=== PATIENT | female | born 1930 | race Caucasian/White ===

== ENCOUNTER 2017-05-03 12:24 | Emergency (ER) | payer MEDICARE, OTHER ==
[~2017-05-03] VITALS: Ht 152.4 cm; Wt 56.4 kg
[~2017-05-03 12:24] MED LIST: ATEN-169 PO; BENA20TA2 PO; FURO20TA4 PO; HYDR-4070 PO; MORP15TA60 PO; NIFE90TA2 PO; ONDA4TAB59 PO; OXYB5TAB PO; PANT40TA4 PO; ROSU40TA PO; SENN-129 PO; SYN0.075T PO; TRAM50TA2 PO
[2017-05-03 13:04] LABS: BASOPHILS % (AUTO) 0.4 % (0-1); EOSINOPHILS # (AUTO) 0.3 X10'3 (0-0.9); EOSINOPHILS % (AUTO) 3.1 % (0-6); HEMATOCRIT 44.4 % (35.0-45.0); HEMOGLOBIN 14.9 g/dl (12.0-16.0); LYMPHOCYTES # (AUTO) 2.9 X10'3 (1.1-4.8); LYMPHOCYTES % (AUTO) 30.8 % (21-51); MEAN CORPUSCULAR HGB CONC 33.6 % (33.0-36.5); MEAN CORPUSCULAR VOLUME 92.4 FL (78-98); MEAN PLATELET VOLUME 9.7 FL (7.4-10.4); MONOCYTES # (AUTO) 0.5 X10'3 (0-0.9); MONOCYTES % (AUTO) 5.2 % (2-12); NEUTROPHILS # (AUTO) 5.7 X10'3 (1.8-7.7); NEUTROPHILS % (AUTO) 60.5 % (42-75); PLATELET COUNT 249 X10'3 (140-440); RED BLOOD COUNT 4.81 X10'6 (4.20-5.60); RED CELL DISTRIBUTION WIDTH 13.8 % (11.5-14.5); WHITE BLOOD COUNT 9.5 X10'3 (4.5-11.0)
[2017-05-03 13:35] LABS: PARTIAL THROMBOPLASTIN TIME 24 SECONDS (22-32)
[2017-05-03] MEDS ORDERED: morphine ER 15mg tablet PO ONE (13:40)
[2017-05-03 13:52] LABS: ALANINE AMINOTRANSFERASE 23 U/L (12-78); ALBUMIN 3.7 G/DL (3.4-5.0); ALKALINE PHOSPHATASE 57 IU/L (46-116); ANION GAP 14 (8-16); ASPARTATE AMINO TRANSFERASE 19 U/L (10-37); BILIRUBIN,TOTAL 0.9 MG/DL (0.1-1.0); BLOOD UREA NITROGEN 26 MG/DL (7-18); BUN/CREATININE RATIO 19.5 (6.6-38.0); CALCIUM 8.9 MG/DL (8.5-10.1); CHLORIDE 108 MMOL/L (99-107); CREATININE 1.33 MG/DL (0.40-0.90); GLUCOSE 113 MG/DL (70-104); POTASSIUM 3.7 MMOL/L (3.5-5.1); SODIUM 143 MMOL/L (135-145); TOTAL CARBON DIOXIDE 21.2 MMOL/L (24-32); TOTAL PROTEIN 7.3 G/DL (6.4-8.2); eGFR 38 ML/MIN
[2017-05-03] MEDS ORDERED: BENA20TA2 PO (13:55)
[2017-05-03] MEDS ORDERED: BENA40TA2 PO (13:55)
[2017-05-03] MEDS ORDERED: MORP30TA60 PO (14:03)
[2017-05-03] MEDS ORDERED: hyDRALAzine 10mg tablet PO ONE (14:40)
[2017-05-03] MEDS ORDERED: lisinopril 10 MG tablet PO ONE (15:15)
[2017-05-03] MEDS ORDERED: carVEDilol 3.125mg tablet PO ONE (15:15)
[2017-05-03 16:50] VITALS: BP 190/89
== END 2017-05-03 17:17 | disposition home or self-care (01) ==
LOC: ER 12:26
DX: I10 Essential (primary) hypertension (principal); G89.29 Other chronic pain; M54.9 Dorsalgia, unspecified; I25.10 Atherosclerotic heart disease of native coronary artery without angina pectoris; K21.9 Gastro-esophageal reflux disease without esophagitis; E78.00 Pure hypercholesterolemia, unspecified; I25.2 Old myocardial infarction; Z95.1 Presence of aortocoronary bypass graft; Z79.899 Other long term (current) drug therapy; Z88.1 Allergy status to other antibiotic agents; Z88.8 Allergy status to other drugs, medicaments and biological substances
CPT/HCPCS: 36415; 80053; 84484; 85025; 85610; 85730; 93005; 99285

== ENCOUNTER 2017-05-12 11:11 | Inpatient (IN) | payer MEDICARE, OTHER ==
[2017-05-12] VITALS (10 sets, daily range): BP systolic 130–167; BP diastolic 50–85
[~2017-05-12] VITALS: Ht 152.4 cm; Wt 54.5 kg
[~2017-05-12 11:11] MED LIST changes: +BENA40TA2 PO; -MORP15TA60 PO; +MORP30TA60 PO; -NIFE90TA2 PO; -ONDA4TAB59 PO; -PANT40TA4 PO; -SENN-129 PO; -TRAM50TA2 PO
[2017-05-12] MEDS: nitroGLYCERIN 0.4mg SUBLingual tab SL PRN ×2 (11:41→12:54)
[2017-05-12 11:46] LABS: BASOPHILS # (AUTO) 0.1 X10'3 (0-0.2); EOSINOPHILS # (AUTO) 0.4 X10'3 (0-0.9); EOSINOPHILS % (AUTO) 2.9 % (0-6); HEMATOCRIT 38.6 % (35.0-45.0); HEMOGLOBIN 13.4 g/dl (12.0-16.0); LYMPHOCYTES # (AUTO) 1.7 X10'3 (1.1-4.8); LYMPHOCYTES % (AUTO) 12.8 % (21-51); MEAN CORPUSCULAR HEMOGLOBIN 31.7 PG (27.0-31.0); MEAN CORPUSCULAR HGB CONC 34.6 % (33.0-36.5); MEAN CORPUSCULAR VOLUME 91.6 FL (78-98); MEAN PLATELET VOLUME 9.5 FL (7.4-10.4); MONOCYTES # (AUTO) 0.6 X10'3 (0-0.9); MONOCYTES % (AUTO) 4.6 % (2-12); NEUTROPHILS # (AUTO) 10.1 X10'3 (1.8-7.7); NEUTROPHILS % (AUTO) 78.7 % (42-75); PLATELET COUNT 197 X10'3 (140-440); RED BLOOD COUNT 4.22 X10'6 (4.20-5.60); RED CELL DISTRIBUTION WIDTH 13.4 % (11.5-14.5); WHITE BLOOD COUNT 12.9 X10'3 (4.5-11.0)
[2017-05-12 11:59] LABS: ALANINE AMINOTRANSFERASE 15 U/L (12-78); ALBUMIN 3.4 G/DL (3.4-5.0); ALKALINE PHOSPHATASE 47 IU/L (46-116); ANION GAP 12 (8-16); ASPARTATE AMINO TRANSFERASE 11 U/L (10-37); BILIRUBIN,TOTAL 0.7 MG/DL (0.1-1.0); BLOOD UREA NITROGEN 28 MG/DL (7-18); BUN/CREATININE RATIO 18.5 (6.6-38.0); CALCIUM 9.1 MG/DL (8.5-10.1); CHLORIDE 108 MMOL/L (99-107); CREATININE 1.51 MG/DL (0.40-0.90); GLUCOSE 191 MG/DL (70-104); POTASSIUM 3.8 MMOL/L (3.5-5.1); SODIUM 141 MMOL/L (135-145); TOTAL CARBON DIOXIDE 21.4 MMOL/L (24-32); TOTAL PROTEIN 6.9 G/DL (6.4-8.2); eGFR 33 ML/MIN
[2017-05-12 12:07] LABS: MAGNESIUM 2.1 MG/DL (1.5-2.4)
[2017-05-12] MEDS ORDERED: enoxaparin 100mg/ml syringe SUBCUT ONE (12:50)
[2017-05-12] MEDS ORDERED: mag hydrox/Alum hydrox/simeth 30ml oral suspension PO PRN (12:55)
[2017-05-12] MEDS ORDERED: magnesium 2GM in 50ml NS 50 ML IV PRN (12:55)
[2017-05-12] MEDS ORDERED: magnesium hydroxide 30ml (MOM) UD suspension PO PRN (12:55)
[2017-05-12] MEDS ORDERED: potassium Cl 40MEQ/NS 500ml 500 ML IV PRN ×2 (12:55)
[2017-05-12] MEDS ORDERED: ondansetron/PF 4mg/2ml inj IV PRN ×2 (12:55→22:15)
[2017-05-12] MEDS ORDERED: acetaminophen 325mg tablet PO PRN (12:55)
[2017-05-12] MEDS ORDERED: magnesium 4gm in 100ml NS 100 ML IV PRN (12:55)
[2017-05-12] MEDS: atorvastatin 20mg tablet PO SCH ×2 (13:03→21:00)
[2017-05-12] MEDS ORDERED: furosemide 20MG tablet PO PRN (13:03)
[2017-05-12] MEDS: levoTHYROXINE 75mcg tablet PO SCH (13:03)
[2017-05-12] MEDS ORDERED: hydrALAZINE 25 MG tablet PO PRN (13:03)
[2017-05-12] MEDS: morphine ER 15mg tablet PO SCH (13:03)
[2017-05-12] MEDS: lisinopril 20mg tablet PO SCH ×2 (13:18→21:00)
[2017-05-12] MEDS: oxybutynin 5mg tablet PO SCH ×2 (13:20→20:00)
[2017-05-12] MEDS ORDERED: nitroGLYCERIN-Tridil 50MG/D5W 250 ML IV SCH (17:20)
[2017-05-12] MEDS ORDERED: heparin 10,000 units/1 ML INJ IV ONE (19:45)
[2017-05-12] MEDS ORDERED: heparin 10,000 units/1 ML INJ IV PRN (19:45)
[2017-05-12 20:13] LABS: BASOPHILS # (AUTO) 0.1 X10'3 (0-0.2); BASOPHILS % (AUTO) 0.5 % (0-1); EOSINOPHILS # (AUTO) 0.2 X10'3 (0-0.9); EOSINOPHILS % (AUTO) 1.7 % (0-6); HEMOGLOBIN 13.2 g/dl (12.0-16.0); LYMPHOCYTES # (AUTO) 3.4 X10'3 (1.1-4.8); LYMPHOCYTES % (AUTO) 25.1 % (21-51); MEAN CORPUSCULAR HEMOGLOBIN 31.3 PG (27.0-31.0); MEAN PLATELET VOLUME 9.6 FL (7.4-10.4); MONOCYTES % (AUTO) 7.3 % (2-12); NEUTROPHILS # (AUTO) 8.8 X10'3 (1.8-7.7); NEUTROPHILS % (AUTO) 65.4 % (42-75); PLATELET COUNT 206 X10'3 (140-440); RED BLOOD COUNT 4.24 X10'6 (4.20-5.60); RED CELL DISTRIBUTION WIDTH 13.5 % (11.5-14.5); WHITE BLOOD COUNT 13.4 X10'3 (4.5-11.0)
[2017-05-12 20:19] LABS: PARTIAL THROMBOPLASTIN TIME 32 SECONDS (22-32); PROTHROMBIN TIME 10.4 SECONDS (9.0-12.0)
[2017-05-12] MEDS: tirofiban 5mg in NS 100mL 100 ML IV SCH (20:28)
[2017-05-12] MEDS ORDERED: LIDOcaine 1%/PF (10mg/ml) 5ml vial ONE (20:35)
[2017-05-12] MEDS ORDERED: iohexol 350MG/ML 100ml bottle IV ONE (20:35)
[2017-05-12] MEDS ORDERED: fentaNYL/PF 50MCG/1 ML 2ML syringe ONE (21:05)
[2017-05-12] MEDS ORDERED: midazolam 2 mg/2 ml injection ONE (21:05)
[2017-05-12] MEDS ORDERED: heparin 1,000unit/ml 10ml vial 10 ML ONE (21:20)
[2017-05-12] MEDS ORDERED: ticagrelor 90mg tablet ONE (21:33)
[2017-05-12] MEDS ORDERED: normal saline 1000ml 1,000 ML IV SCH (22:00)
[2017-05-12] MEDS ORDERED: HYDROcodone/acetaminophen 10/325mg tab PO PRN (22:15)
[2017-05-12] MEDS ORDERED: OXAZEpam 15mg capsule PO PRN (22:15)
[2017-05-12] MEDS ORDERED: HYDROcodone/acetaminophen 5mg/325mg tablet PO PRN (22:15)
[2017-05-12] MEDS ORDERED: nitroGLYCERIN 0.4mg SUBLingual tab SL PRN (22:15)
[2017-05-13] VITALS (11 sets, daily range): BP systolic 125–165; BP diastolic 45–84
[2017-05-13] MEDS: tirofiban 5mg in NS 100mL 100 ML IV SCH (03:33)
[2017-05-13 05:46] LABS: BASOPHILS % (AUTO) 0.3 % (0-1); EOSINOPHILS # (AUTO) 0.3 X10'3 (0-0.9); EOSINOPHILS % (AUTO) 3.4 % (0-6); HEMATOCRIT 35.4 % (35.0-45.0); LYMPHOCYTES # (AUTO) 1.6 X10'3 (1.1-4.8); LYMPHOCYTES % (AUTO) 16.1 % (21-51); MEAN CORPUSCULAR HEMOGLOBIN 31.4 PG (27.0-31.0); MEAN CORPUSCULAR HGB CONC 33.9 % (33.0-36.5); MEAN CORPUSCULAR VOLUME 92.6 FL (78-98); MEAN PLATELET VOLUME 10.1 FL (7.4-10.4); MONOCYTES # (AUTO) 0.7 X10'3 (0-0.9); MONOCYTES % (AUTO) 6.9 % (2-12); NEUTROPHILS # (AUTO) 7.3 X10'3 (1.8-7.7); NEUTROPHILS % (AUTO) 73.3 % (42-75); PLATELET COUNT 185 X10'3 (140-440); RED BLOOD COUNT 3.83 X10'6 (4.20-5.60); RED CELL DISTRIBUTION WIDTH 13.3 % (11.5-14.5)
[2017-05-13 06:08] LABS: ALANINE AMINOTRANSFERASE 27 U/L (12-78); ALBUMIN/GLOBULIN RATIO 0.9 (1.1-1.5); ALKALINE PHOSPHATASE 43 IU/L (46-116); ANION GAP 10 (8-16); ASPARTATE AMINO TRANSFERASE 126 U/L (10-37); BILIRUBIN,TOTAL 0.7 MG/DL (0.1-1.0); BLOOD UREA NITROGEN 25 MG/DL (7-18); BUN/CREATININE RATIO 19.2 (6.6-38.0); CALCIUM 8.5 MG/DL (8.5-10.1); CHLORIDE 108 MMOL/L (99-107); CHOL/HDL RATIO 2.7 (0.00-4.99); CHOLESTEROL 108 MG/DL (0-200); GLUCOSE 103 MG/DL (70-104); HDL CHOLESTEROL 40 MG/DL (35-60); LDL CHOLESTEROL 52 MG/DL (50-100); POTASSIUM 3.5 MMOL/L (3.5-5.1); SODIUM 140 MMOL/L (135-145); TOTAL CARBON DIOXIDE 21.7 MMOL/L (24-32); TOTAL PROTEIN 6.4 G/DL (6.4-8.2); TRIGLYCERIDES 85 MG/DL (20-135); eGFR 39 ML/MIN
[2017-05-13] MEDS ORDERED: proCHLORperazine 10 MG/2 ml inj IV PRN (06:15)
[2017-05-13] MEDS ORDERED: normal saline 1000ml 1,000 ML IV SCH (06:15)
[2017-05-13] MEDS: levoTHYROXINE 75mcg tablet PO SCH (07:20)
[2017-05-13] MEDS: ticagrelor 90mg tablet PO SCH ×2 (07:20→20:21)
[2017-05-13] MEDS: oxybutynin 5mg tablet PO SCH ×2 (07:20→20:21)
[2017-05-13] MEDS: morphine ER 15mg tablet PO SCH (07:20)
[2017-05-13] MEDS: lisinopril 20mg tablet PO SCH ×2 (07:20→20:22)
[2017-05-13] MEDS: K and/or MAG REPLACEMENT MC SCH (07:31)
[2017-05-13] MEDS ORDERED: enoxaparin 60mg/0.6ml syringe SUBCUT SCH (08:00)
[2017-05-13] MEDS ORDERED: nitroGLYCERIN 0.2mg/hour patch TD SCH (08:00)
[2017-05-13] MEDS: aspirin 81mg tablet.DR PO SCH (08:34)
[2017-05-13] MEDS: metoprolol succinate 25mg (24-HOUR) SR. Tablet PO SCH (08:35)
[2017-05-13] MEDS: atorvastatin 20mg tablet PO SCH (20:22)
[2017-05-14 03:00] VITALS: BP 128/93
[2017-05-14 05:09] LABS: BASOPHILS % (AUTO) 0.5 % (0-1); EOSINOPHILS # (AUTO) 0.5 X10'3 (0-0.9); EOSINOPHILS % (AUTO) 6.1 % (0-6); HEMATOCRIT 33.4 % (35.0-45.0); HEMOGLOBIN 11.2 g/dl (12.0-16.0); LYMPHOCYTES # (AUTO) 1.9 X10'3 (1.1-4.8); LYMPHOCYTES % (AUTO) 24.5 % (21-51); MEAN CORPUSCULAR HGB CONC 33.6 % (33.0-36.5); MEAN CORPUSCULAR VOLUME 92.1 FL (78-98); MEAN PLATELET VOLUME 10.2 FL (7.4-10.4); MONOCYTES # (AUTO) 0.6 X10'3 (0-0.9); MONOCYTES % (AUTO) 7.6 % (2-12); NEUTROPHILS # (AUTO) 4.7 X10'3 (1.8-7.7); NEUTROPHILS % (AUTO) 61.3 % (42-75); PLATELET COUNT 161 X10'3 (140-440); RED BLOOD COUNT 3.63 X10'6 (4.20-5.60); RED CELL DISTRIBUTION WIDTH 13.5 % (11.5-14.5); WHITE BLOOD COUNT 7.7 X10'3 (4.5-11.0)
[2017-05-14 05:24] LABS: ALANINE AMINOTRANSFERASE 29 U/L (12-78); ALBUMIN 2.6 G/DL (3.4-5.0); ALBUMIN/GLOBULIN RATIO 0.8 (1.1-1.5); ALKALINE PHOSPHATASE 38 IU/L (46-116); ANION GAP 8 (8-16); ASPARTATE AMINO TRANSFERASE 79 U/L (10-37); BILIRUBIN,TOTAL 0.7 MG/DL (0.1-1.0); BLOOD UREA NITROGEN 22 MG/DL (7-18); BUN/CREATININE RATIO 16.2 (6.6-38.0); CALCIUM 8.4 MG/DL (8.5-10.1); CHLORIDE 110 MMOL/L (99-107); CREATININE 1.36 MG/DL (0.40-0.90); GLUCOSE 91 MG/DL (70-104); MAGNESIUM 1.9 MG/DL (1.5-2.4); POTASSIUM 3.4 MMOL/L (3.5-5.1); SODIUM 141 MMOL/L (135-145); TOTAL CARBON DIOXIDE 23.5 MMOL/L (24-32); TOTAL PROTEIN 5.9 G/DL (6.4-8.2); eGFR 37 ML/MIN
[2017-05-14 06:00] VITALS: BP 157/71
[2017-05-14 07:22] VITALS: BP 136/66
[2017-05-14] MEDS: aspirin 81mg tablet.DR PO SCH (07:24)
[2017-05-14] MEDS: morphine ER 15mg tablet PO SCH (07:25)
[2017-05-14] MEDS: ticagrelor 90mg tablet PO SCH (07:25)
[2017-05-14] MEDS: oxybutynin 5mg tablet PO SCH (07:25)
[2017-05-14] MEDS: lisinopril 20mg tablet PO SCH (07:26)
[2017-05-14] MEDS: levoTHYROXINE 75mcg tablet PO SCH (07:27)
[2017-05-14] MEDS: K and/or MAG REPLACEMENT MC SCH (07:30)
[2017-05-14] MEDS: metoprolol succinate 25mg (24-HOUR) SR. Tablet PO SCH (07:35)
[2017-05-14] MEDS ORDERED: potassium Cl 20 mEq SR tablet PO PRN ×2 (08:45)
[2017-05-14] MEDS ORDERED: potassium Cl 40MEQ/NS 500ml 500 ML IV PRN ×2 (08:45)
[2017-05-14] MEDS ORDERED: ASPI-1071 PO (11:35)
[2017-05-14] MEDS ORDERED: TICA90TA PO (11:35)
[2017-05-14 11:45] VITALS: BP 163/63
[2017-05-14 11:46] VITALS: BP 183/63
== END 2017-05-14 14:50 | disposition home or self-care (01) | DRG 246 ==
LOC: ER 11:11 → ED HOLD 12:51 → PCU 3S 16:00
PROVIDERS: ADMIT Family Medicine; ATTEND Internal Medicine
PROC: 4A023N7 Measurement of Cardiac Sampling and Pressure, Left Heart, Percutaneous Approach (ICD-10-PCS; principal; 2017-05-12)
PROC: 02C03ZZ Extirpation of Matter from Coronary Artery, One Artery, Percutaneous Approach (ICD-10-PCS; 2017-05-12)
PROC: 027035Z Dilation of Coronary Artery, One Artery with Two Drug-eluting Intraluminal Devices, Percutaneous Approach (ICD-10-PCS; 2017-05-12)
PROC: B2111ZZ Fluoroscopy of Multiple Coronary Arteries using Low Osmolar Contrast (ICD-10-PCS; 2017-05-12)
PROC: B2131ZZ Fluoroscopy of Multiple Coronary Artery Bypass Grafts using Low Osmolar Contrast (ICD-10-PCS; 2017-05-12)
PROC: B41F1ZZ Fluoroscopy of Right Lower Extremity Arteries using Low Osmolar Contrast (ICD-10-PCS; 2017-05-12)
DX: T82.868A Thrombosis due to vascular prosthetic devices, implants and grafts, initial encounter (principal); I21.4 Non-ST elevation (NSTEMI) myocardial infarction; I50.31 Acute diastolic (congestive) heart failure; N17.9 Acute kidney failure, unspecified; I25.710 Atherosclerosis of autologous vein coronary artery bypass graft(s) with unstable angina pectoris; I13.0 Hypertensive heart and chronic kidney disease with heart failure and stage 1 through stage 4 chronic kidney disease, or unspecified chronic kidney disease; I44.7 Left bundle-branch block, unspecified; Z95.1 Presence of aortocoronary bypass graft; E03.9 Hypothyroidism, unspecified; N18.9 Chronic kidney disease, unspecified; E78.00 Pure hypercholesterolemia, unspecified; E78.5 Hyperlipidemia, unspecified; G89.4 Chronic pain syndrome; M54.9 Dorsalgia, unspecified; K21.9 Gastro-esophageal reflux disease without esophagitis; Y83.2 Surgical operation with anastomosis, bypass or graft as the cause of abnormal reaction of the patient, or of later complication, without mention of misadventure at the time of the procedure; I25.2 Old myocardial infarction; Z98.82 Breast implant status; Z90.13 Acquired absence of bilateral breasts and nipples; Z90.710 Acquired absence of both cervix and uterus; Z90.49 Acquired absence of other specified parts of digestive tract; Z88.1 Allergy status to other antibiotic agents; Z88.8 Allergy status to other drugs, medicaments and biological substances; Z79.899 Other long term (current) drug therapy; Z85.3 Personal history of malignant neoplasm of breast; Z82.49 Family history of ischemic heart disease and other diseases of the circulatory system; Z82.5 Family history of asthma and other chronic lower respiratory diseases; Y92.89 Other specified places as the place of occurrence of the external cause
CPT/HCPCS: 93306; 93459; 96372; 99285; C9604; 36415; 71045; 80053; 80061; 83735; 83880; 84484; 85025; 85347; 85610; 85730; 87070; 93005; 99152; 99153; A4315; A4620; A6257; C1725; C1757; C1760; C1769; C1874; J1644; J1650; J2001; J2250; J2270; J3010; J3246; J3490; J7030; Q9967

== ENCOUNTER 2017-05-17 02:48 | Inpatient (IN) | payer MEDICARE, OTHER ==
[~2017-05-17] VITALS: Ht 157.5 cm; Wt 55.7 kg
[~2017-05-17 02:48] MED LIST changes: +ASPI-1071 PO; -BENA40TA2 PO; -ROSU40TA PO; +TICA90TA PO
[2017-05-17] MEDS ORDERED: aspirin 81mg tab.chew PO ONE (02:55)
[2017-05-17] MEDS ORDERED: nitroGLYCERIN 0.4mg SUBLingual tab SL PRN (02:55)
[2017-05-17 03:28] LABS: BASOPHILS # (AUTO) 0.1 X10'3 (0-0.2); BASOPHILS % (AUTO) 0.5 % (0-1); EOSINOPHILS # (AUTO) 0.5 X10'3 (0-0.9); EOSINOPHILS % (AUTO) 5.5 % (0-6); HEMATOCRIT 35.3 % (35.0-45.0); LYMPHOCYTES # (AUTO) 2.2 X10'3 (1.1-4.8); LYMPHOCYTES % (AUTO) 22.1 % (21-51); MEAN CORPUSCULAR HEMOGLOBIN 31.6 PG (27.0-31.0); MEAN CORPUSCULAR VOLUME 92.9 FL (78-98); MEAN PLATELET VOLUME 9.5 FL (7.4-10.4); MONOCYTES # (AUTO) 0.9 X10'3 (0-0.9); MONOCYTES % (AUTO) 9.3 % (2-12); NEUTROPHILS # (AUTO) 6.2 X10'3 (1.8-7.7); NEUTROPHILS % (AUTO) 62.6 % (42-75); PLATELET COUNT 210 X10'3 (140-440); RED BLOOD COUNT 3.79 X10'6 (4.20-5.60); RED CELL DISTRIBUTION WIDTH 13.1 % (11.5-14.5); WHITE BLOOD COUNT 9.9 X10'3 (4.5-11.0)
[2017-05-17 03:43] LABS: ALANINE AMINOTRANSFERASE 51 U/L (12-78); ALBUMIN 3.1 G/DL (3.4-5.0); ALBUMIN/GLOBULIN RATIO 0.8 (1.1-1.5); ALKALINE PHOSPHATASE 77 IU/L (46-116); ANION GAP 10 (8-16); ASPARTATE AMINO TRANSFERASE 123 U/L (10-37); BILIRUBIN,TOTAL 0.6 MG/DL (0.1-1.0); BLOOD UREA NITROGEN 31 MG/DL (7-18); BUN/CREATININE RATIO 16.8 (6.6-38.0); CALCIUM 8.3 MG/DL (8.5-10.1); CHLORIDE 107 MMOL/L (99-107); CREATININE 1.84 MG/DL (0.40-0.90); GLUCOSE 163 MG/DL (70-104); SODIUM 141 MMOL/L (135-145); TOTAL CARBON DIOXIDE 24.2 MMOL/L (24-32); TOTAL PROTEIN 6.9 G/DL (6.4-8.2); eGFR 26 ML/MIN
[2017-05-17 03:50] LABS: MAGNESIUM 2.3 MG/DL (1.5-2.4)
[2017-05-17] MEDS ORDERED: enoxaparin 100mg/ml syringe SUBCUT ONE (03:50)
[2017-05-17] MEDS ORDERED: ondansetron/PF 4mg/2ml inj IV PRN (04:15)
[2017-05-17] MEDS ORDERED: acetaminophen 325mg tablet PO PRN (04:15)
[2017-05-17] MEDS ORDERED: mag hydrox/Alum hydrox/simeth 30ml oral suspension PO PRN (04:15)
[2017-05-17] MEDS ORDERED: nitroGLYCERIN 0.4mg/hour patch TD ONE (04:30)
[2017-05-17] MEDS ORDERED: furosemide 20MG tablet PO PRN (04:35)
[2017-05-17] MEDS: metoprolol tartrate 25mg tablet PO SCH ×2 (07:35→20:08)
[2017-05-17] MEDS: levoTHYROXINE 75mcg tablet PO SCH (07:35)
[2017-05-17] MEDS: ticagrelor 90mg tablet PO SCH ×2 (07:35→20:08)
[2017-05-17] MEDS: aspirin 81mg tablet.DR PO SCH (07:35)
[2017-05-17] MEDS: oxybutynin 5mg tablet PO SCH ×2 (07:36→20:08)
[2017-05-17] MEDS: morphine ER 15mg tablet PO SCH (07:36)
[2017-05-17 15:25] VITALS: BP 158/80
[2017-05-17 19:00] VITALS: BP 177/86
[2017-05-17] MEDS ORDERED: lisinopril 20mg tablet PO SCH (21:00)
[2017-05-17] MEDS: acetaminophen 325mg tablet PO PRN (21:29)
[2017-05-17 23:00] VITALS: BP 165/72
[2017-05-18] VITALS (9 sets, daily range): BP systolic 127–194; BP diastolic 58–83
[2017-05-18] MEDS ORDERED: morphine 5 MG/ML injection IV ONE (00:50)
[2017-05-18] MEDS: magnesium hydroxide 30ml (MOM) UD suspension PO PRN (04:21)
[2017-05-18] MEDS: hydrALAZINE 20mg/ml inj. IV PRN ×2 (05:12→22:15)
[2017-05-18 05:22] LABS: BASOPHILS # (AUTO) 0.1 X10'3 (0-0.2); BASOPHILS % (AUTO) 0.8 % (0-1); EOSINOPHILS # (AUTO) 0.7 X10'3 (0-0.9); EOSINOPHILS % (AUTO) 7.3 % (0-6); HEMATOCRIT 35.8 % (35.0-45.0); HEMOGLOBIN 12.1 g/dl (12.0-16.0); LYMPHOCYTES # (AUTO) 1.8 X10'3 (1.1-4.8); LYMPHOCYTES % (AUTO) 18.7 % (21-51); MEAN CORPUSCULAR HEMOGLOBIN 31.3 PG (27.0-31.0); MEAN CORPUSCULAR HGB CONC 33.8 % (33.0-36.5); MEAN CORPUSCULAR VOLUME 92.6 FL (78-98); MEAN PLATELET VOLUME 9.9 FL (7.4-10.4); MONOCYTES # (AUTO) 0.8 X10'3 (0-0.9); MONOCYTES % (AUTO) 8.2 % (2-12); NEUTROPHILS # (AUTO) 6.2 X10'3 (1.8-7.7); PLATELET COUNT 216 X10'3 (140-440); RED BLOOD COUNT 3.87 X10'6 (4.20-5.60); RED CELL DISTRIBUTION WIDTH 13.2 % (11.5-14.5); WHITE BLOOD COUNT 9.5 X10'3 (4.5-11.0)
[2017-05-18 05:37] LABS: ALBUMIN 3.2 G/DL (3.4-5.0); ANION GAP 7 (8-16); BLOOD UREA NITROGEN 22 MG/DL (7-18); BUN/CREATININE RATIO 15.2 (6.6-38.0); CALCIUM 8.7 MG/DL (8.5-10.1); CHLORIDE 106 MMOL/L (99-107); CREATININE 1.45 MG/DL (0.40-0.90); GLUCOSE 91 MG/DL (70-104); POTASSIUM 3.9 MMOL/L (3.5-5.1); SODIUM 140 MMOL/L (135-145); TOTAL CARBON DIOXIDE 27.1 MMOL/L (24-32); eGFR 34 ML/MIN
[2017-05-18] MEDS: oxybutynin 5mg tablet PO SCH ×2 (07:16→19:49)
[2017-05-18] MEDS: aspirin 81mg tablet.DR PO SCH (07:16)
[2017-05-18] MEDS: metoprolol tartrate 25mg tablet PO SCH ×2 (07:17→19:49)
[2017-05-18] MEDS: pantoprazole 40mg Tablet.DR PO SCH (07:17)
[2017-05-18] MEDS: ticagrelor 90mg tablet PO SCH ×2 (07:17→19:49)
[2017-05-18] MEDS: morphine ER 15mg tablet PO SCH (07:17)
[2017-05-18] MEDS: levoTHYROXINE 75mcg tablet PO SCH (07:17)
[2017-05-18] MEDS: lisinopril 20mg tablet PO SCH (08:29)
[2017-05-18] MEDS: isosorbide mononitrate 30mg tab.SR.24H PO SCH (12:10)
[2017-05-18] MEDS: acetaminophen 325mg tablet PO PRN ×2 (14:26→23:19)
[2017-05-18] MEDS ORDERED: metoprolol tartrate 50mg tablet PO ONE (22:50)
[2017-05-19] VITALS (7 sets, daily range): BP systolic 128–188; BP diastolic 58–73
[2017-05-19 05:06] LABS: BASOPHILS # (AUTO) 0.1 X10'3 (0-0.2); BASOPHILS % (AUTO) 0.8 % (0-1); EOSINOPHILS # (AUTO) 0.7 X10'3 (0-0.9); EOSINOPHILS % (AUTO) 7.6 % (0-6); HEMATOCRIT 32.5 % (35.0-45.0); HEMOGLOBIN 11.2 g/dl (12.0-16.0); LYMPHOCYTES # (AUTO) 1.7 X10'3 (1.1-4.8); LYMPHOCYTES % (AUTO) 18.7 % (21-51); MEAN CORPUSCULAR HEMOGLOBIN 31.6 PG (27.0-31.0); MEAN CORPUSCULAR HGB CONC 34.4 % (33.0-36.5); MEAN CORPUSCULAR VOLUME 91.7 FL (78-98); MEAN PLATELET VOLUME 9.5 FL (7.4-10.4); MONOCYTES # (AUTO) 0.9 X10'3 (0-0.9); NEUTROPHILS # (AUTO) 5.6 X10'3 (1.8-7.7); NEUTROPHILS % (AUTO) 62.9 % (42-75); PLATELET COUNT 199 X10'3 (140-440); RED BLOOD COUNT 3.55 X10'6 (4.20-5.60)
[2017-05-19 05:21] LABS: ALBUMIN 2.9 G/DL (3.4-5.0); ANION GAP 7 (8-16); BLOOD UREA NITROGEN 22 MG/DL (7-18); BUN/CREATININE RATIO 14.7 (6.6-38.0); CALCIUM 8.8 MG/DL (8.5-10.1); CHLORIDE 107 MMOL/L (99-107); GLUCOSE 93 MG/DL (70-104); SODIUM 138 MMOL/L (135-145); eGFR 33 ML/MIN
[2017-05-19] MEDS: isosorbide mononitrate 30mg tab.SR.24H PO SCH (07:34)
[2017-05-19] MEDS: oxybutynin 5mg tablet PO SCH ×2 (07:34→19:21)
[2017-05-19] MEDS: pantoprazole 40mg Tablet.DR PO SCH (07:35)
[2017-05-19] MEDS: ticagrelor 90mg tablet PO SCH ×2 (07:35→19:22)
[2017-05-19] MEDS: metoprolol tartrate 25mg tablet PO SCH ×2 (07:35→19:21)
[2017-05-19] MEDS: morphine ER 15mg tablet PO SCH (07:35)
[2017-05-19] MEDS: lisinopril 20mg tablet PO SCH ×2 (07:35→19:21)
[2017-05-19] MEDS: aspirin 81mg tablet.DR PO SCH (07:35)
[2017-05-19] MEDS: levoTHYROXINE 75mcg tablet PO SCH (07:35)
[2017-05-19] MEDS: acetaminophen 325mg tablet PO PRN ×2 (09:10→22:18)
[2017-05-19] MEDS ORDERED: ROSU40TA29 (11:39)
[2017-05-19] MEDS ORDERED: NIFE90TA44 (11:39)
[2017-05-19] MEDS ORDERED: BENA20TA10 (11:39)
[2017-05-19] MEDS ORDERED: TICA90TA2 (11:42)
[2017-05-19] MEDS: hydrALAZINE 20mg/ml inj. IV PRN (22:18)
[2017-05-19] MEDS ORDERED: metoprolol tartrate 25mg tablet PO ONE (23:05)
[2017-05-20] VITALS (17 sets, daily range): BP systolic 121–197; BP diastolic 55–96
[2017-05-20] MEDS ORDERED: pramipexole 0.25mg tablet PO ONE (00:35)
[2017-05-20] MEDS: HYDROcodone/acetaminophen 5mg/325mg tablet PO PRN ×2 (01:01→22:43)
[2017-05-20 05:24] LABS: BASOPHILS # (AUTO) 0.1 X10'3 (0-0.2); BASOPHILS % (AUTO) 0.7 % (0-1); EOSINOPHILS # (AUTO) 0.6 X10'3 (0-0.9); EOSINOPHILS % (AUTO) 6.6 % (0-6); HEMATOCRIT 33.8 % (35.0-45.0); HEMOGLOBIN 11.6 g/dl (12.0-16.0); LYMPHOCYTES # (AUTO) 1.8 X10'3 (1.1-4.8); LYMPHOCYTES % (AUTO) 19.1 % (21-51); MEAN CORPUSCULAR HEMOGLOBIN 31.5 PG (27.0-31.0); MEAN CORPUSCULAR HGB CONC 34.2 % (33.0-36.5); MEAN CORPUSCULAR VOLUME 92.1 FL (78-98); MEAN PLATELET VOLUME 9.4 FL (7.4-10.4); MONOCYTES # (AUTO) 0.9 X10'3 (0-0.9); MONOCYTES % (AUTO) 9.4 % (2-12); NEUTROPHILS # (AUTO) 5.9 X10'3 (1.8-7.7); NEUTROPHILS % (AUTO) 64.2 % (42-75); PLATELET COUNT 228 X10'3 (140-440); RED BLOOD COUNT 3.67 X10'6 (4.20-5.60); RED CELL DISTRIBUTION WIDTH 13.1 % (11.5-14.5); WHITE BLOOD COUNT 9.3 X10'3 (4.5-11.0)
[2017-05-20 06:02] LABS: ALBUMIN 3.1 G/DL (3.4-5.0); ANION GAP 10 (8-16); BLOOD UREA NITROGEN 25 MG/DL (7-18); BUN/CREATININE RATIO 16.7 (6.6-38.0); CHLORIDE 105 MMOL/L (99-107); GLUCOSE 112 MG/DL (70-104); SODIUM 139 MMOL/L (135-145); TOTAL CARBON DIOXIDE 24.1 MMOL/L (24-32); eGFR 33 ML/MIN
[2017-05-20] MEDS: ticagrelor 90mg tablet PO SCH ×2 (08:09→19:24)
[2017-05-20] MEDS: aspirin 81mg tablet.DR PO SCH (08:09)
[2017-05-20] MEDS: levoTHYROXINE 75mcg tablet PO SCH (08:09)
[2017-05-20] MEDS: pantoprazole 40mg Tablet.DR PO SCH (08:09)
[2017-05-20] MEDS: lisinopril 20mg tablet PO SCH ×2 (08:09→19:24)
[2017-05-20] MEDS: oxybutynin 5mg tablet PO SCH ×2 (08:09→19:25)
[2017-05-20] MEDS: isosorbide mononitrate 30mg tab.SR.24H PO SCH (08:09)
[2017-05-20] MEDS: morphine ER 15mg tablet PO SCH (08:10)
[2017-05-20] MEDS: metoprolol tartrate 25mg tablet PO SCH ×2 (08:10→19:24)
[2017-05-20] MEDS: magnesium hydroxide 30ml (MOM) UD suspension PO PRN (13:11)
[2017-05-20] MEDS: acetaminophen 325mg tablet PO PRN ×2 (15:52→23:49)
[2017-05-20] MEDS: hydrALAZINE 20mg/ml inj. IV PRN (15:52)
[2017-05-20] MEDS ORDERED: ROPINIRole 0.25mg tablet PO SCH (21:00)
[2017-05-20] MEDS ORDERED: metoprolol tartrate 25mg tablet PO ONE (23:30)
[2017-05-21 03:00] VITALS: BP 151/57
[2017-05-21 06:00] VITALS: BP 167/70
[2017-05-21 06:10] LABS: BASOPHILS # (AUTO) 0.1 X10'3 (0-0.2); BASOPHILS % (AUTO) 0.7 % (0-1); EOSINOPHILS # (AUTO) 0.6 X10'3 (0-0.9); EOSINOPHILS % (AUTO) 5.5 % (0-6); HEMOGLOBIN 11.6 g/dl (12.0-16.0); LYMPHOCYTES # (AUTO) 1.6 X10'3 (1.1-4.8); LYMPHOCYTES % (AUTO) 15.8 % (21-51); MEAN CORPUSCULAR HEMOGLOBIN 31.7 PG (27.0-31.0); MEAN CORPUSCULAR HGB CONC 34.3 % (33.0-36.5); MEAN CORPUSCULAR VOLUME 92.5 FL (78-98); MEAN PLATELET VOLUME 9.5 FL (7.4-10.4); MONOCYTES # (AUTO) 0.7 X10'3 (0-0.9); MONOCYTES % (AUTO) 7.4 % (2-12); NEUTROPHILS # (AUTO) 7.1 X10'3 (1.8-7.7); NEUTROPHILS % (AUTO) 70.6 % (42-75); PLATELET COUNT 226 X10'3 (140-440); RED BLOOD COUNT 3.68 X10'6 (4.20-5.60); WHITE BLOOD COUNT 10.1 X10'3 (4.5-11.0)
[2017-05-21 06:51] LABS: ALBUMIN 3.1 G/DL (3.4-5.0); ANION GAP 9 (8-16); BLOOD UREA NITROGEN 27 MG/DL (7-18); BUN/CREATININE RATIO 16.9 (6.6-38.0); CALCIUM 8.7 MG/DL (8.5-10.1); CHLORIDE 105 MMOL/L (99-107); GLUCOSE 111 MG/DL (70-104); SODIUM 138 MMOL/L (135-145); eGFR 31 ML/MIN
[2017-05-21] MEDS: metoprolol tartrate 25mg tablet PO SCH (07:36)
[2017-05-21] MEDS: ticagrelor 90mg tablet PO SCH (07:36)
[2017-05-21] MEDS: isosorbide mononitrate 30mg tab.SR.24H PO SCH (07:36)
[2017-05-21] MEDS: levoTHYROXINE 75mcg tablet PO SCH (07:36)
[2017-05-21] MEDS: oxybutynin 5mg tablet PO SCH (07:36)
[2017-05-21] MEDS: aspirin 81mg tablet.DR PO SCH (07:36)
[2017-05-21] MEDS: morphine ER 15mg tablet PO SCH (07:36)
[2017-05-21] MEDS: lisinopril 20mg tablet PO SCH (07:36)
[2017-05-21] MEDS: pantoprazole 40mg Tablet.DR PO SCH (07:36)
[2017-05-21 09:23] VITALS: BP 135/62
== END 2017-05-21 10:35 | DRG 292 ==
LOC: ER 02:49 → ED HOLD 04:11 → PCU 3S 14:33
PROVIDERS: ADMIT Internal Medicine; ATTEND Internal Medicine
DX: I13.0 Hypertensive heart and chronic kidney disease with heart failure and stage 1 through stage 4 chronic kidney disease, or unspecified chronic kidney disease (principal); N17.9 Acute kidney failure, unspecified; I25.110 Atherosclerotic heart disease of native coronary artery with unstable angina pectoris; I44.7 Left bundle-branch block, unspecified; I50.30 Unspecified diastolic (congestive) heart failure; G89.29 Other chronic pain; M54.9 Dorsalgia, unspecified; E03.9 Hypothyroidism, unspecified; N18.9 Chronic kidney disease, unspecified; E78.00 Pure hypercholesterolemia, unspecified; E78.5 Hyperlipidemia, unspecified; G25.81 Restless legs syndrome; K21.9 Gastro-esophageal reflux disease without esophagitis; M16.10 Unilateral primary osteoarthritis, unspecified hip; Z66 Do not resuscitate; I25.2 Old myocardial infarction; Z90.710 Acquired absence of both cervix and uterus; Z90.49 Acquired absence of other specified parts of digestive tract; Z95.1 Presence of aortocoronary bypass graft; Z95.5 Presence of coronary angioplasty implant and graft; Z88.8 Allergy status to other drugs, medicaments and biological substances; Z79.82 Long term (current) use of aspirin; Z79.899 Other long term (current) drug therapy
CPT/HCPCS: 36415; 71045; 80048; 80053; 83735; 83880; 84484; 85025; 85610; 93005; 96372; 97116; 97161; 99285; J0360; J1650; J2270

== ENCOUNTER 2017-06-22 14:02 | Inpatient (IN) | payer MEDICARE, OTHER ==
[~2017-06-22] VITALS: Ht 5032.2 cm; Wt 52.7 kg
[~2017-06-22 14:02] MED LIST changes: +NIFE90TA44; +ROSU40TA29
[2017-06-22] MEDS ORDERED: normal saline 1000ML IV soln IVB ONE ×2 (15:15→16:25)
[2017-06-22 15:53] LABS: BASOPHILS % (AUTO) 0.4 % (0-1); EOSINOPHILS # (AUTO) 0.1 X10'3 (0-0.9); EOSINOPHILS % (AUTO) 1.2 % (0-6); HEMATOCRIT 32.5 % (35.0-45.0); HEMOGLOBIN 11.4 g/dl (12.0-16.0); LYMPHOCYTES # (AUTO) 1.8 X10'3 (1.1-4.8); LYMPHOCYTES % (AUTO) 16.7 % (21-51); MEAN CORPUSCULAR HEMOGLOBIN 31.9 PG (27.0-31.0); MEAN CORPUSCULAR VOLUME 91.1 FL (78-98); MEAN PLATELET VOLUME 8.8 FL (7.4-10.4); MONOCYTES # (AUTO) 0.9 X10'3 (0-0.9); MONOCYTES % (AUTO) 8.1 % (2-12); NEUTROPHILS % (AUTO) 73.6 % (42-75); PLATELET COUNT 294 X10'3 (140-440); RED BLOOD COUNT 3.57 X10'6 (4.20-5.60); RED CELL DISTRIBUTION WIDTH 12.7 % (11.5-14.5); WHITE BLOOD COUNT 10.9 X10'3 (4.5-11.0)
[2017-06-22 16:08] LABS: ALANINE AMINOTRANSFERASE 15 U/L (12-78); ALBUMIN 3.3 G/DL (3.4-5.0); ALBUMIN/GLOBULIN RATIO 0.7 (1.1-1.5); ALKALINE PHOSPHATASE 60 IU/L (46-116); ANION GAP 18 (8-16); ASPARTATE AMINO TRANSFERASE 20 U/L (10-37); BILIRUBIN,TOTAL 0.7 MG/DL (0.1-1.0); BLOOD UREA NITROGEN 68 MG/DL (7-18); BUN/CREATININE RATIO 14.3 (6.6-38.0); CALCIUM 9.4 MG/DL (8.5-10.1); CHLORIDE 105 MMOL/L (99-107); CREATININE 4.75 MG/DL (0.40-0.90); GLUCOSE 111 MG/DL (70-104); MAGNESIUM 2.8 MG/DL (1.5-2.4); PHOSPHORUS 2.8 MG/DL (2.3-4.5); POTASSIUM 3.5 MMOL/L (3.5-5.1); SODIUM 142 MMOL/L (135-145); TOTAL CARBON DIOXIDE 19.1 MMOL/L (24-32); eGFR 9 ML/MIN
[2017-06-22 16:13] LABS: ETHANOL < 0.010 GM/DL (0.0-0.010)
[2017-06-22] MEDS ORDERED: cefTRIAXone 1g/NS 100ml IVPB 100 ML IV ONE (16:25)
[2017-06-22 16:26] LABS: COLOR,URINE YELLOW (Yellow); GLUCOSE, URINE NEGATIVE (Neg); KETONES,URINE NEGATIVE (Neg); LEUKOCYTE ESTERASE ,URINE SMALL (Neg); NITRITES, URINE NEGATIVE (Neg); OCCULT BLOOD,URINE MODERATE (Neg); PROTEIN,URINE 30 mg/dl (Neg); UROBILINOGEN,URINE 0.2 E.U/dL (0.2-1.0)
[2017-06-22 16:30] LABS: CLARITY,URINE TURBID (Clear)
[2017-06-22 16:33] LABS: BACTERIA,URINE 4+ /HPF (Neg); RBC,URINE 0-2 /HPF (0-2); SQUAMOUS EPITHELIAL CELL,UR FEW /LPF (FEW); UA COLLECTION TYPE STRAIGHT CATH; WBC,URINE TNTC /HPF (0-4)
[2017-06-22] MEDS ORDERED: magnesium Cl slow-release 64mg tablet PO PRN (17:40)
[2017-06-22] MEDS ORDERED: morphine 2 MG/ML inj. syringe IV PRN ×2 (17:40)
[2017-06-22] MEDS ORDERED: acetaminophen 325mg tablet PO PRN (17:40)
[2017-06-22] MEDS ORDERED: ondansetron/PF 4mg/2ml inj IV PRN (17:40)
[2017-06-22] MEDS ORDERED: magnesium hydroxide 30ml (MOM) UD suspension PO PRN (17:40)
[2017-06-22] MEDS ORDERED: magnesium 2GM in 50ml NS 50 ML IV PRN (17:40)
[2017-06-22] MEDS ORDERED: magnesium 4gm in 100ml NS 100 ML IV PRN (17:40)
[2017-06-22] MEDS ORDERED: potassium Cl 20 mEq SR tablet PO PRN (17:40)
[2017-06-22] MEDS ORDERED: potassium Cl 40MEQ/NS 500ml 500 ML IV PRN ×2 (17:40)
[2017-06-22] MEDS: normal saline 1000ml 1,000 ML IV SCH (18:17)
[2017-06-22 20:15] VITALS: BP 151/67
[2017-06-22] MEDS: atenolol 50mg tablet PO SCH (20:48)
[2017-06-22] MEDS: ticagrelor 90mg tablet PO SCH (20:48)
[2017-06-22] MEDS: heparin, porcine 5000 units/ml vial SQ SCH (20:49)
[2017-06-22] MEDS ORDERED: lisinopril 20mg tablet PO SCH ×2 (21:00)
[2017-06-22] MEDS: temazepam 15mg capsule PO PRN (22:38)
[2017-06-23] VITALS: BP 186/69
[2017-06-23] MEDS: HYDROcodone/acetaminophen 5mg/325mg tablet PO PRN ×2 (00:31→18:26)
[2017-06-23 02:00] VITALS: BP 156/64
[2017-06-23] MEDS: normal saline 1000ml 1,000 ML IV SCH ×5 (02:20→22:01)
[2017-06-23 05:46] LABS: BASOPHILS # (AUTO) 0.1 X10'3 (0-0.2); BASOPHILS % (AUTO) 0.7 % (0-1); EOSINOPHILS # (AUTO) 0.3 X10'3 (0-0.9); EOSINOPHILS % (AUTO) 3.9 % (0-6); HEMATOCRIT 27.9 % (35.0-45.0); HEMOGLOBIN 9.6 g/dl (12.0-16.0); LYMPHOCYTES # (AUTO) 1.6 X10'3 (1.1-4.8); LYMPHOCYTES % (AUTO) 20.7 % (21-51); MEAN CORPUSCULAR HEMOGLOBIN 31.5 PG (27.0-31.0); MEAN CORPUSCULAR HGB CONC 34.6 % (33.0-36.5); MEAN PLATELET VOLUME 8.7 FL (7.4-10.4); MONOCYTES # (AUTO) 0.7 X10'3 (0-0.9); NEUTROPHILS # (AUTO) 5.1 X10'3 (1.8-7.7); NEUTROPHILS % (AUTO) 65.7 % (42-75); PLATELET COUNT 218 X10'3 (140-440); RED BLOOD COUNT 3.06 X10'6 (4.20-5.60); RED CELL DISTRIBUTION WIDTH 12.8 % (11.5-14.5); WHITE BLOOD COUNT 7.8 X10'3 (4.5-11.0)
[2017-06-23 06:32] LABS: CHLORIDE 112 MMOL/L (99-107); GLUCOSE 77 MG/DL (70-104); POTASSIUM 3.3 MMOL/L (3.5-5.1); SODIUM 145 MMOL/L (135-145)
[2017-06-23 06:33] LABS: ALANINE AMINOTRANSFERASE 12 U/L (12-78); ALBUMIN 2.5 G/DL (3.4-5.0); ALBUMIN/GLOBULIN RATIO 0.7 (1.1-1.5); ALKALINE PHOSPHATASE 44 IU/L (46-116); ANION GAP 14 (8-16); ASPARTATE AMINO TRANSFERASE 20 U/L (10-37); BILIRUBIN,TOTAL 0.4 MG/DL (0.1-1.0); BLOOD UREA NITROGEN 50 MG/DL (7-18); BUN/CREATININE RATIO 12.8 (6.6-38.0); CALCIUM 7.7 MG/DL (8.5-10.1); CREATININE 3.91 MG/DL (0.40-0.90); MAGNESIUM 2.3 MG/DL (1.5-2.4); TOTAL PROTEIN 6.3 G/DL (6.4-8.2); eGFR 11 ML/MIN
[2017-06-23 07:00] VITALS: BP 193/66
[2017-06-23 07:05] VITALS: BP 188/62
[2017-06-23] MEDS: CefTRIAXone 2gm/NS 100ml IVPB 100 ML IV SCH (07:35)
[2017-06-23] MEDS: atenolol 50mg tablet PO SCH ×2 (07:40→20:24)
[2017-06-23] MEDS: ticagrelor 90mg tablet PO SCH ×2 (07:40→20:24)
[2017-06-23] MEDS: levoTHYROXINE 75mcg tablet PO SCH (07:41)
[2017-06-23] MEDS: aspirin 81mg tablet.DR PO SCH (07:43)
[2017-06-23] MEDS: heparin, porcine 5000 units/ml vial SQ SCH ×2 (07:44→20:24)
[2017-06-23] MEDS: potassium Cl 20 mEq SR tablet PO PRN ×3 (07:50→20:25)
[2017-06-23] MEDS: K and/or MAG REPLACEMENT MC SCH (08:00)
[2017-06-23] MEDS ORDERED: oxybutynin 5mg tablet PO SCH (08:00)
[2017-06-23 11:00] VITALS: BP 119/77
[2017-06-23] MEDS ORDERED: hydrALAZINE 25 MG tablet PO PRN (11:05)
[2017-06-23] MEDS: NIFEdipine XL 30mg tablet PO SCH (12:16)
[2017-06-23] MEDS: oxybutynin 5mg tablet PO SCH ×2 (12:30→20:24)
[2017-06-23] MEDS: lactobacillus rhamnosus 10,000 MMU CELLS/CAPSULE PO SCH (18:26)
[2017-06-23 20:00] VITALS: BP 117/45
[2017-06-23] MEDS: temazepam 15mg capsule PO PRN (22:42)
[2017-06-24] VITALS: BP 126/46
[2017-06-24] MEDS: normal saline 1000ml 1,000 ML IV SCH ×5 (02:10→18:00)
[2017-06-24] MEDS: HYDROcodone/acetaminophen 10/325mg tab PO PRN ×4 (02:24→21:42)
[2017-06-24 05:51] LABS: BASOPHILS % (AUTO) 0.6 % (0-1); EOSINOPHILS # (AUTO) 0.5 X10'3 (0-0.9); EOSINOPHILS % (AUTO) 6.8 % (0-6); HEMATOCRIT 26.3 % (35.0-45.0); HEMOGLOBIN 9.2 g/dl (12.0-16.0); LYMPHOCYTES # (AUTO) 1.8 X10'3 (1.1-4.8); LYMPHOCYTES % (AUTO) 23.7 % (21-51); MEAN CORPUSCULAR HEMOGLOBIN 31.8 PG (27.0-31.0); MEAN CORPUSCULAR HGB CONC 35.1 % (33.0-36.5); MEAN CORPUSCULAR VOLUME 90.7 FL (78-98); MEAN PLATELET VOLUME 8.6 FL (7.4-10.4); MONOCYTES # (AUTO) 0.7 X10'3 (0-0.9); NEUTROPHILS # (AUTO) 4.5 X10'3 (1.8-7.7); NEUTROPHILS % (AUTO) 59.9 % (42-75); PLATELET COUNT 199 X10'3 (140-440); RED CELL DISTRIBUTION WIDTH 13.2 % (11.5-14.5); WHITE BLOOD COUNT 7.5 X10'3 (4.5-11.0)
[2017-06-24 06:08] LABS: ALANINE AMINOTRANSFERASE 19 U/L (12-78); ALBUMIN 2.5 G/DL (3.4-5.0); ALBUMIN/GLOBULIN RATIO 0.7 (1.1-1.5); ALKALINE PHOSPHATASE 44 IU/L (46-116); ANION GAP 14 (8-16); ASPARTATE AMINO TRANSFERASE 22 U/L (10-37); BILIRUBIN,TOTAL 0.4 MG/DL (0.1-1.0); BLOOD UREA NITROGEN 35 MG/DL (7-18); BUN/CREATININE RATIO 12.3 (6.6-38.0); CALCIUM 7.3 MG/DL (8.5-10.1); CHLORIDE 114 MMOL/L (99-107); CREATININE 2.85 MG/DL (0.40-0.90); GLUCOSE 78 MG/DL (70-104); MAGNESIUM 1.7 MG/DL (1.5-2.4); POTASSIUM 3.7 MMOL/L (3.5-5.1); SODIUM 145 MMOL/L (135-145); TOTAL CARBON DIOXIDE 16.9 MMOL/L (24-32); TOTAL PROTEIN 6.3 G/DL (6.4-8.2); eGFR 16 ML/MIN
[2017-06-24 08:00] VITALS: BP 156/52
[2017-06-24] MEDS: K and/or MAG REPLACEMENT MC SCH (08:00)
[2017-06-24] MEDS: lactobacillus rhamnosus 10,000 MMU CELLS/CAPSULE PO SCH ×2 (08:29→18:00)
[2017-06-24] MEDS: aspirin 81mg tablet.DR PO SCH (08:29)
[2017-06-24] MEDS: levoTHYROXINE 75mcg tablet PO SCH (08:29)
[2017-06-24] MEDS: ticagrelor 90mg tablet PO SCH ×2 (08:29→20:29)
[2017-06-24] MEDS: heparin, porcine 5000 units/ml vial SQ SCH ×2 (08:32→20:28)
[2017-06-24] MEDS: oxybutynin 5mg tablet PO SCH ×2 (08:33→20:29)
[2017-06-24] MEDS: atenolol 50mg tablet PO SCH ×2 (08:33→20:29)
[2017-06-24] MEDS: CefTRIAXone 2gm/NS 100ml IVPB 100 ML IV SCH (08:35)
[2017-06-24] MEDS: NIFEdipine XL 30mg tablet PO SCH (08:38)
[2017-06-24 11:24] VITALS: BP 122/46
[2017-06-24] MEDS: mag hydrox/Alum hydrox/simeth 30ml oral suspension PO PRN ×2 (14:05→21:42)
[2017-06-24 19:30] VITALS: BP 133/58
[2017-06-25] VITALS: BP 163/73
[2017-06-25] MEDS: temazepam 15mg capsule PO PRN (00:05)
[2017-06-25 05:44] LABS: BASOPHILS % (AUTO) 0.5 % (0-1); EOSINOPHILS # (AUTO) 0.9 X10'3 (0-0.9); EOSINOPHILS % (AUTO) 9.4 % (0-6); HEMATOCRIT 27.1 % (35.0-45.0); HEMOGLOBIN 9.4 g/dl (12.0-16.0); LYMPHOCYTES # (AUTO) 1.9 X10'3 (1.1-4.8); LYMPHOCYTES % (AUTO) 20.4 % (21-51); MEAN CORPUSCULAR HEMOGLOBIN 31.8 PG (27.0-31.0); MEAN CORPUSCULAR HGB CONC 34.8 % (33.0-36.5); MEAN CORPUSCULAR VOLUME 91.3 FL (78-98); MEAN PLATELET VOLUME 8.7 FL (7.4-10.4); MONOCYTES # (AUTO) 0.6 X10'3 (0-0.9); NEUTROPHILS # (AUTO) 5.8 X10'3 (1.8-7.7); NEUTROPHILS % (AUTO) 62.7 % (42-75); PLATELET COUNT 200 X10'3 (140-440); RED BLOOD COUNT 2.97 X10'6 (4.20-5.60); RED CELL DISTRIBUTION WIDTH 13.2 % (11.5-14.5); WHITE BLOOD COUNT 9.2 X10'3 (4.5-11.0)
[2017-06-25 06:07] LABS: ALANINE AMINOTRANSFERASE 20 U/L (12-78); ALBUMIN 2.4 G/DL (3.4-5.0); ALBUMIN/GLOBULIN RATIO 0.6 (1.1-1.5); ALKALINE PHOSPHATASE 40 IU/L (46-116); ANION GAP 15 (8-16); ASPARTATE AMINO TRANSFERASE 19 U/L (10-37); BILIRUBIN,TOTAL 0.3 MG/DL (0.1-1.0); BLOOD UREA NITROGEN 24 MG/DL (7-18); BUN/CREATININE RATIO 10.4 (6.6-38.0); CALCIUM 7.3 MG/DL (8.5-10.1); CHLORIDE 113 MMOL/L (99-107); GLUCOSE 76 MG/DL (70-104); MAGNESIUM 1.7 MG/DL (1.5-2.4); POTASSIUM 3.4 MMOL/L (3.5-5.1); SODIUM 146 MMOL/L (135-145); TOTAL CARBON DIOXIDE 18.4 MMOL/L (24-32); TOTAL PROTEIN 6.2 G/DL (6.4-8.2); eGFR 20 ML/MIN
[2017-06-25 08:00] VITALS: BP 155/56
[2017-06-25] MEDS: lactobacillus rhamnosus 10,000 MMU CELLS/CAPSULE PO SCH ×2 (08:31→17:57)
[2017-06-25] MEDS: levoTHYROXINE 75mcg tablet PO SCH (08:33)
[2017-06-25] MEDS: CefTRIAXone 2gm/NS 100ml IVPB 100 ML IV SCH (08:33)
[2017-06-25] MEDS: aspirin 81mg tablet.DR PO SCH (08:33)
[2017-06-25] MEDS: oxybutynin 5mg tablet PO SCH ×2 (08:33→19:31)
[2017-06-25] MEDS: atenolol 50mg tablet PO SCH ×2 (08:36→19:31)
[2017-06-25] MEDS: ticagrelor 90mg tablet PO SCH ×2 (08:37→19:31)
[2017-06-25] MEDS: heparin, porcine 5000 units/ml vial SQ SCH ×2 (08:40→19:31)
[2017-06-25] MEDS: NIFEdipine XL 30mg tablet PO SCH (08:41)
[2017-06-25] MEDS: K and/or MAG REPLACEMENT MC SCH (08:43)
[2017-06-25] MEDS: potassium Cl 20 mEq SR tablet PO PRN (08:52)
[2017-06-25 11:00] VITALS: BP 133/54
[2017-06-25] MEDS: HYDROcodone/acetaminophen 10/325mg tab PO PRN ×3 (11:30→21:44)
[2017-06-25] MEDS: normal saline 1000ml 1,000 ML IV SCH ×2 (14:22→20:15)
[2017-06-25 19:30] VITALS: BP 149/62
[2017-06-26 00:10] VITALS: BP 160/72
[2017-06-26] MEDS: normal saline 1000ml 1,000 ML IV SCH ×3 (02:55→15:28)
[2017-06-26] MEDS: HYDROcodone/acetaminophen 10/325mg tab PO PRN ×2 (04:41→14:05)
[2017-06-26 05:58] LABS: BASOPHILS % (AUTO) 0.5 % (0-1); EOSINOPHILS # (AUTO) 0.8 X10'3 (0-0.9); EOSINOPHILS % (AUTO) 9.5 % (0-6); HEMATOCRIT 27.3 % (35.0-45.0); HEMOGLOBIN 9.5 g/dl (12.0-16.0); LYMPHOCYTES # (AUTO) 1.9 X10'3 (1.1-4.8); LYMPHOCYTES % (AUTO) 21.2 % (21-51); MEAN CORPUSCULAR HEMOGLOBIN 31.7 PG (27.0-31.0); MEAN CORPUSCULAR HGB CONC 34.7 % (33.0-36.5); MEAN CORPUSCULAR VOLUME 91.4 FL (78-98); MEAN PLATELET VOLUME 8.7 FL (7.4-10.4); MONOCYTES # (AUTO) 0.6 X10'3 (0-0.9); MONOCYTES % (AUTO) 7.1 % (2-12); NEUTROPHILS # (AUTO) 5.4 X10'3 (1.8-7.7); NEUTROPHILS % (AUTO) 61.7 % (42-75); PLATELET COUNT 183 X10'3 (140-440); RED BLOOD COUNT 2.98 X10'6 (4.20-5.60); RED CELL DISTRIBUTION WIDTH 12.9 % (11.5-14.5); WHITE BLOOD COUNT 8.7 X10'3 (4.5-11.0)
[2017-06-26 06:23] LABS: ALANINE AMINOTRANSFERASE 16 U/L (12-78); ALBUMIN 2.3 G/DL (3.4-5.0); ALBUMIN/GLOBULIN RATIO 0.7 (1.1-1.5); ALKALINE PHOSPHATASE 39 IU/L (46-116); ANION GAP 11 (8-16); ASPARTATE AMINO TRANSFERASE 15 U/L (10-37); BILIRUBIN,TOTAL 0.4 MG/DL (0.1-1.0); BLOOD UREA NITROGEN 21 MG/DL (7-18); BUN/CREATININE RATIO 10.7 (6.6-38.0); CALCIUM 7.1 MG/DL (8.5-10.1); CHLORIDE 113 MMOL/L (99-107); CREATININE 1.96 MG/DL (0.40-0.90); GLUCOSE 80 MG/DL (70-104); MAGNESIUM 1.5 MG/DL (1.5-2.4); POTASSIUM 3.5 MMOL/L (3.5-5.1); SODIUM 143 MMOL/L (135-145); TOTAL CARBON DIOXIDE 18.6 MMOL/L (24-32); TOTAL PROTEIN 5.8 G/DL (6.4-8.2); eGFR 24 ML/MIN
[2017-06-26 07:30] VITALS: BP 182/59
[2017-06-26] MEDS: CefTRIAXone 2gm/NS 100ml IVPB 100 ML IV SCH (07:57)
[2017-06-26] MEDS: levoTHYROXINE 75mcg tablet PO SCH (07:58)
[2017-06-26] MEDS: atenolol 50mg tablet PO SCH (07:58)
[2017-06-26] MEDS: aspirin 81mg tablet.DR PO SCH (07:58)
[2017-06-26] MEDS: NIFEdipine XL 30mg tablet PO SCH (07:58)
[2017-06-26] MEDS: ticagrelor 90mg tablet PO SCH (07:58)
[2017-06-26] MEDS: lactobacillus rhamnosus 10,000 MMU CELLS/CAPSULE PO SCH (07:58)
[2017-06-26] MEDS: oxybutynin 5mg tablet PO SCH (08:01)
[2017-06-26] MEDS: heparin, porcine 5000 units/ml vial SQ SCH (09:04)
[2017-06-26] MEDS: K and/or MAG REPLACEMENT MC SCH (09:05)
[2017-06-26 11:29] VITALS: BP 125/47
== END 2017-06-26 16:49 | DRG 871 ==
LOC: ER 14:02 → ED HOLD 17:38 → EDBEDREQ 19:35 → MED 3N 20:15
PROVIDERS: ADMIT Internal Medicine; ATTEND Internal Medicine
DX: A41.9 Sepsis, unspecified organism (principal); G93.41 Metabolic encephalopathy; N17.9 Acute kidney failure, unspecified; E87.2 Acidosis; N39.0 Urinary tract infection, site not specified; E83.41 Hypermagnesemia; E86.0 Dehydration; I10 Essential (primary) hypertension; E03.9 Hypothyroidism, unspecified; M54.9 Dorsalgia, unspecified; D64.9 Anemia, unspecified; E78.00 Pure hypercholesterolemia, unspecified; E78.5 Hyperlipidemia, unspecified; G89.29 Other chronic pain; I25.10 Atherosclerotic heart disease of native coronary artery without angina pectoris; K21.9 Gastro-esophageal reflux disease without esophagitis; B96.20 Unspecified Escherichia coli [E. coli] as the cause of diseases classified elsewhere; I25.2 Old myocardial infarction; Z95.1 Presence of aortocoronary bypass graft; Z95.5 Presence of coronary angioplasty implant and graft; Z90.710 Acquired absence of both cervix and uterus; Z90.49 Acquired absence of other specified parts of digestive tract; Z88.8 Allergy status to other drugs, medicaments and biological substances; Z79.82 Long term (current) use of aspirin; Z79.899 Other long term (current) drug therapy; Z82.5 Family history of asthma and other chronic lower respiratory diseases
CPT/HCPCS: 36415; 70450; 71045; 74176; 80053; 80320; 81001; 83735; 84100; 84443; 84484; 85025; 87070; 87077; 87088; 87186; 96365; 96366; 97116; 97161; 99285; A4353; A4565; J0696; J1644; J2405; J7030

== ENCOUNTER 2017-09-24 10:27 | Outpatient (CLI) | payer MEDICARE, OTHER ==
[~2017-09-24 10:27] MED LIST changes: -BENA20TA2 PO; -NIFE90TA44
[2017-09-24 11:57] LABS: BASOPHILS # (AUTO) 0.1 X10'3 (0-0.2); BASOPHILS % (AUTO) 0.6 % (0-1); EOSINOPHILS # (AUTO) 0.4 X10'3 (0-0.9); EOSINOPHILS % (AUTO) 3.1 % (0-6); HEMATOCRIT 25.3 % (35.0-45.0); HEMOGLOBIN 8.6 g/dl (12.0-16.0); LYMPHOCYTES # (AUTO) 1.4 X10'3 (1.1-4.8); LYMPHOCYTES % (AUTO) 10.8 % (21-51); MEAN CORPUSCULAR HEMOGLOBIN 30.7 PG (27.0-31.0); MEAN CORPUSCULAR HGB CONC 33.9 % (33.0-36.5); MEAN CORPUSCULAR VOLUME 90.7 FL (78-98); MEAN PLATELET VOLUME 8.9 FL (7.4-10.4); MONOCYTES # (AUTO) 0.7 X10'3 (0-0.9); MONOCYTES % (AUTO) 5.7 % (2-12); NEUTROPHILS # (AUTO) 10.3 X10'3 (1.8-7.7); NEUTROPHILS % (AUTO) 79.8 % (42-75); PLATELET COUNT 316 X10'3 (140-440); RED BLOOD COUNT 2.79 X10'6 (4.20-5.60); RED CELL DISTRIBUTION WIDTH 13.9 % (11.5-14.5); WHITE BLOOD COUNT 12.9 X10'3 (4.5-11.0)
[2017-09-24 12:14] LABS: ALBUMIN 3.3 G/DL (3.4-5.0); ANION GAP 13 (8-16); BLOOD UREA NITROGEN 25 MG/DL (7-18); BUN/CREATININE RATIO 11.2 (6.6-38.0); CHLORIDE 106 MMOL/L (99-107); CREATININE 2.24 MG/DL (0.40-0.90); GLUCOSE 116 MG/DL (70-104); POTASSIUM 3.9 MMOL/L (3.5-5.1); SODIUM 142 MMOL/L (135-145); TOTAL CARBON DIOXIDE 22.8 MMOL/L (24-32); eGFR 21 ML/MIN
== END 2017-09-24 23:59 | disposition home or self-care (01) ==
LOC: CARD DIAG 10:27
PROVIDERS: ATTEND Internal Medicine Cardiovascular Disease
DX: I08.0 Rheumatic disorders of both mitral and aortic valves (principal); I11.0 Hypertensive heart disease with heart failure; I50.9 Heart failure, unspecified
CPT/HCPCS: 36415; 71046; 80048; 83880; 85025; 93306

== ENCOUNTER 2018-06-30 12:30 | Emergency (ER) | payer MEDICARE, OTHER ==
[~2018-06-30] VITALS: Ht 151.1 cm; Wt 56.8 kg
[~2018-06-30 12:30] MED LIST changes: +ROSU40TA21; -ROSU40TA29
[2018-06-30 13:29] LABS: BASOPHILS # (AUTO) 0.1 X10'3 (0-0.2); BASOPHILS % (AUTO) 1.1 % (0-1); EOSINOPHILS # (AUTO) 0.3 X10'3 (0-0.9); EOSINOPHILS % (AUTO) 3.6 % (0-6); HEMATOCRIT 36.6 % (35.0-45.0); HEMOGLOBIN 12.2 g/dl (12.0-16.0); LYMPHOCYTES % (AUTO) 20.6 % (21-51); MEAN CORPUSCULAR HEMOGLOBIN 30.2 PG (27.0-31.0); MEAN CORPUSCULAR HGB CONC 33.2 g/dL (33.0-36.5); MEAN CORPUSCULAR VOLUME 90.9 FL (78-98); MEAN PLATELET VOLUME 8.9 FL (7.4-10.4); MONOCYTES # (AUTO) 0.6 X10'3 (0-0.9); MONOCYTES % (AUTO) 6.2 % (2-12); NEUTROPHILS # (AUTO) 6.5 X10'3 (1.8-7.7); NEUTROPHILS % (AUTO) 68.5 % (42-75); PLATELET COUNT 250 X10'3 (140-440); RED BLOOD COUNT 4.03 X10'6 (4.20-5.60); WHITE BLOOD COUNT 9.6 X10'3 (4.5-11.0)
[2018-06-30 13:48] LABS: ALANINE AMINOTRANSFERASE 32 U/L (12-78); ALBUMIN 3.8 G/DL (3.4-5.0); ALKALINE PHOSPHATASE 46 IU/L (46-116); ANION GAP 13 (8-16); ASPARTATE AMINO TRANSFERASE 38 U/L (10-37); BILIRUBIN,TOTAL 0.4 MG/DL (0.1-1.0); BLOOD UREA NITROGEN 35 MG/DL (7-18); BUN/CREATININE RATIO 17.3 (6.6-38.0); CALCIUM 8.7 MG/DL (8.5-10.1); CHLORIDE 105 MMOL/L (99-107); CREATININE 2.02 MG/DL (0.40-0.90); GLUCOSE 127 MG/DL (70-104); POTASSIUM 4.1 MMOL/L (3.5-5.1); SODIUM 141 MMOL/L (135-145); TOTAL CARBON DIOXIDE 23.1 MMOL/L (24-32); TOTAL PROTEIN 7.8 G/DL (6.4-8.2); eGFR 23 ML/MIN
[2018-06-30 13:49] LABS: PARTIAL THROMBOPLASTIN TIME 26 SECONDS (22-32)
[2018-06-30] MEDS ORDERED: cloNIDine 0.1 mg tablet PO ONE (15:35)
[2018-06-30] MEDS ORDERED: furosemide 10 MG/1 ML 10ml inj IV ONE (15:35)
[2018-06-30] MEDS ORDERED: furosemide 40mg tablet PO ONE (16:20)
[2018-06-30 17:33] VITALS: BP 156/70
== END 2018-06-30 17:40 | disposition home or self-care (01) ==
LOC: ER 12:31
DX: I12.9 Hypertensive chronic kidney disease with stage 1 through stage 4 chronic kidney disease, or unspecified chronic kidney disease (principal); N18.3 Chronic kidney disease, stage 3 (moderate); I25.10 Atherosclerotic heart disease of native coronary artery without angina pectoris; E78.00 Pure hypercholesterolemia, unspecified; I25.2 Old myocardial infarction; K21.9 Gastro-esophageal reflux disease without esophagitis; G89.29 Other chronic pain; M54.9 Dorsalgia, unspecified; Z90.49 Acquired absence of other specified parts of digestive tract; Z90.710 Acquired absence of both cervix and uterus; Z95.1 Presence of aortocoronary bypass graft; Z88.1 Allergy status to other antibiotic agents; Z88.8 Allergy status to other drugs, medicaments and biological substances; Z79.82 Long term (current) use of aspirin
CPT/HCPCS: 36415; 71045; 80053; 83880; 84484; 85025; 85610; 85730; 93005; 99284; J1940

== ENCOUNTER 2018-09-27 20:20 | Observation (INO) | payer MEDICARE, OTHER ==
[~2018-09-27] VITALS: Ht 152.4 cm; Wt 57.0 kg
[~2018-09-27 20:20] MED LIST changes: +CEPH500C5 PO; +PANT40TA4 PO
[2018-09-27 20:59] LABS: BASOPHILS # (AUTO) 0.1 X10'3 (0-0.2); BASOPHILS % (AUTO) 1.2 % (0-1); EOSINOPHILS # (AUTO) 0.4 X10'3 (0-0.9); EOSINOPHILS % (AUTO) 4.8 % (0-6); HEMOGLOBIN 11.8 g/dl (12.0-16.0); LYMPHOCYTES # (AUTO) 1.6 X10'3 (1.1-4.8); MEAN CORPUSCULAR HEMOGLOBIN 31.9 PG (27.0-31.0); MEAN CORPUSCULAR HGB CONC 33.6 g/dL (33.0-36.5); MEAN PLATELET VOLUME 9.2 FL (7.4-10.4); MONOCYTES # (AUTO) 0.3 X10'3 (0-0.9); NEUTROPHILS # (AUTO) 5.7 X10'3 (1.8-7.7); PLATELET COUNT 212 X10'3 (140-440); RED BLOOD COUNT 3.69 X10'6 (4.20-5.60); RED CELL DISTRIBUTION WIDTH 13.2 % (11.5-14.5); WHITE BLOOD COUNT 8.1 X10'3 (4.5-11.0)
[2018-09-27] MEDS ORDERED: aspirin 81mg tab.chew PO ONE (21:05)
[2018-09-27 21:09] LABS: PARTIAL THROMBOPLASTIN TIME 26 SECONDS (22-32)
[2018-09-27 21:13] LABS: ALANINE AMINOTRANSFERASE 61 U/L (12-78); ALBUMIN 3.3 G/DL (3.4-5.0); ALBUMIN/GLOBULIN RATIO 0.9 (1.1-1.5); ALKALINE PHOSPHATASE 110 IU/L (46-116); ANION GAP 10 (8-16); ASPARTATE AMINO TRANSFERASE 116 U/L (10-37); BILIRUBIN,TOTAL 0.4 MG/DL (0.1-1.0); BLOOD UREA NITROGEN 41 MG/DL (7-18); CHLORIDE 106 MMOL/L (99-107); CREATININE 2.05 MG/DL (0.40-0.90); GLUCOSE 128 MG/DL (70-104); POTASSIUM 3.9 MMOL/L (3.5-5.1); SODIUM 141 MMOL/L (135-145); TOTAL CARBON DIOXIDE 25.4 MMOL/L (24-32); TOTAL PROTEIN 7.1 G/DL (6.4-8.2); eGFR 23 ML/MIN
[2018-09-27] MEDS ORDERED: ondansetron/PF 4mg/2ml inj IV ONE (21:40)
[2018-09-27] MEDS ORDERED: CALC0.253 PO (22:00)
[2018-09-27] MEDS ORDERED: GABA-530 PO (22:00)
[2018-09-27] MEDS ORDERED: CLOP75TA35 PO (22:00)
[2018-09-27] MEDS ORDERED: FURO-150 PO (22:00)
[2018-09-27] MEDS ORDERED: NAPH1POW3 PO (22:00)
[2018-09-27] MEDS ORDERED: OMEP40CA37 PO (22:00)
[2018-09-27] MEDS ORDERED: ATEN-169 PO (22:00)
[2018-09-27] MEDS ORDERED: ASPI-1265 PO (22:00)
[2018-09-27] MEDS ORDERED: LEVO50TA8 PO (22:00)
[2018-09-27] MEDS ORDERED: HYDR100T27 PO (22:00)
[2018-09-27] MEDS ORDERED: NIFE90TA44 PO (22:00)
[2018-09-27] MEDS ORDERED: MAGN64TA10 PO (22:00)
[2018-09-27] MEDS ORDERED: ATOR80TA PO (22:00)
[2018-09-27] MEDS ORDERED: ondansetron/PF 4mg/2ml inj IV PRN (23:05)
[2018-09-27] MEDS ORDERED: mag hydrox/Alum hydrox/simeth 30ml oral suspension PO PRN (23:05)
[2018-09-27] MEDS ORDERED: magnesium hydroxide 30ml (MOM) UD suspension PO PRN (23:05)
[2018-09-27] MEDS ORDERED: morphine 2 MG/ML inj. syringe IV PRN ×2 (23:05)
[2018-09-27] MEDS ORDERED: acetaminophen 325mg tablet PO PRN ×2 (23:05)
[2018-09-27] MEDS ORDERED: HYDROcodone/acetaminophen 5mg/325mg tablet PO PRN (23:05)
[2018-09-27] MEDS ORDERED: nitroGLYCERIN 0.4mg SUBLingual tab SL PRN (23:10)
[2018-09-27] MEDS ORDERED: atorvastatin 20mg tablet PO SCH (23:27)
[2018-09-27] MEDS: hydrALAZINE 25 MG tablet PO SCH (23:35)
--- NOTE | 2018-09-27 23:54 | NUR ---
Received report from MARKET RESEARCH ASSISTANT. Patient to follow shortly.
--- NOTE | 2018-09-28 00:05 | NUR ---
Patient arrived to floor via gurney. Pt. A&O, talkative, in good spirits. Pt. SBA to bathroom for void and then into bed. VS taken and tele monitor #[id number] attached.
[2018-09-28 00:20] VITALS: BP 160/68
[2018-09-28 02:59] LABS: BASOPHILS # (AUTO) 0.1 X10'3 (0-0.2); BASOPHILS % (AUTO) 1.1 % (0-1); EOSINOPHILS # (AUTO) 0.3 X10'3 (0-0.9); EOSINOPHILS % (AUTO) 3.6 % (0-6); HEMATOCRIT 32.6 % (35.0-45.0); HEMOGLOBIN 11.3 g/dl (12.0-16.0); LYMPHOCYTES # (AUTO) 1.6 X10'3 (1.1-4.8); LYMPHOCYTES % (AUTO) 21.2 % (21-51); MEAN CORPUSCULAR HEMOGLOBIN 32.3 PG (27.0-31.0); MEAN CORPUSCULAR HGB CONC 34.6 g/dL (33.0-36.5); MEAN CORPUSCULAR VOLUME 93.3 FL (78-98); MEAN PLATELET VOLUME 9.2 FL (7.4-10.4); MONOCYTES # (AUTO) 0.5 X10'3 (0-0.9); MONOCYTES % (AUTO) 6.7 % (2-12); NEUTROPHILS # (AUTO) 5.2 X10'3 (1.8-7.7); NEUTROPHILS % (AUTO) 67.4 % (42-75); PLATELET COUNT 191 X10'3 (140-440); RED CELL DISTRIBUTION WIDTH 13.6 % (11.5-14.5); WHITE BLOOD COUNT 7.8 X10'3 (4.5-11.0)
[2018-09-28 03:05] LABS: HEMOGLOBIN A1C 5.3 % (4.5-6.2)
[2018-09-28 03:24] LABS: ANION GAP 11 (8-16); BLOOD UREA NITROGEN 46 MG/DL (7-18); BUN/CREATININE RATIO 25.1 (6.6-38.0); CALCIUM 8.7 MG/DL (8.5-10.1); CHLORIDE 106 MMOL/L (99-107); CHOL/HDL RATIO 3.7 (0.00-4.99); CHOLESTEROL 108 MG/DL (0-200); CREATININE 1.83 MG/DL (0.40-0.90); GLUCOSE 109 MG/DL (70-104); HDL CHOLESTEROL 29 MG/DL (35-60); LDL CHOLESTEROL 58 MG/DL (50-100); POTASSIUM 3.3 MMOL/L (3.5-5.1); SODIUM 142 MMOL/L (135-145); TRIGLYCERIDES 142 MG/DL (20-135); eGFR 26 ML/MIN
[2018-09-28 04:20] VITALS: BP 160/65
[2018-09-28] MEDS ORDERED: hydrALAZINE 25 MG tablet PO ONE (05:25)
[2018-09-28] MEDS ORDERED: potassium Cl 20 mEq SR tablet PO ONE (05:30)
--- NOTE | 2018-09-28 06:33 | NUR ---
Patient in room [facility]. I have received report from INNA Jean and had the opportunity to ask questions and assume patient care.
--- NOTE | 2018-09-28 06:35 | NUR ---
Problems reprioritized. Patient report given, questions answered & plan of care reviewed with Karly KEITH.
[2018-09-28 07:00] VITALS: BP 146/65
[2018-09-28] MEDS ORDERED: levoTHYROXINE 25mcg tablet PO SCH (07:00)
[2018-09-28] MEDS ORDERED: pantoprazole 40mg Tablet.DR PO SCH (07:30)
[2018-09-28] MEDS ORDERED: aspirin 81mg tab.chew PO SCH ×2 (08:00)
[2018-09-28] MEDS ORDERED: gabapentin 100mg capsule PO SCH (08:00)
[2018-09-28] MEDS ORDERED: Neutra Phos packet PO SCH (08:00)
[2018-09-28] MEDS ORDERED: calcitriol 0.25mcg capsule PO SCH (08:00)
[2018-09-28] MEDS ORDERED: clopidogrel 75mg tablet PO SCH (08:00)
[2018-09-28] MEDS ORDERED: NIFEdipine XL 30mg tablet PO SCH (08:00)
[2018-09-28] MEDS ORDERED: magnesium Cl slow-release 64mg tablet PO SCH (08:00)
[2018-09-28] MEDS ORDERED: furosemide 20MG tablet PO SCH (08:00)
[2018-09-28] MEDS: hydrALAZINE 25 MG tablet PO SCH (09:23)
[2018-09-28] MEDS ORDERED: PANT-47 PO (10:26)
[2018-09-28 11:00] VITALS: BP 146/61
--- NOTE | 2018-09-28 11:47 | NUR ---
Patient given dc instructions; prescription being delivered by [facility]. Waiting for dtr to arrive around noon to pick her up
== END 2018-09-28 12:20 | disposition home or self-care (01) ==
LOC: ER 20:21 → SUR 3N 23:59 → CMPBEDREQ 09-28 00:20
PROVIDERS: ADMIT Internal Medicine; ATTEND Internal Medicine
DX: R07.89 Other chest pain (principal); M54.9 Dorsalgia, unspecified; G89.29 Other chronic pain; I13.0 Hypertensive heart and chronic kidney disease with heart failure and stage 1 through stage 4 chronic kidney disease, or unspecified chronic kidney disease; I50.30 Unspecified diastolic (congestive) heart failure; N18.3 Chronic kidney disease, stage 3 (moderate); E03.9 Hypothyroidism, unspecified; I25.10 Atherosclerotic heart disease of native coronary artery without angina pectoris; E78.5 Hyperlipidemia, unspecified; K21.9 Gastro-esophageal reflux disease without esophagitis; E78.00 Pure hypercholesterolemia, unspecified; I25.2 Old myocardial infarction; Z79.82 Long term (current) use of aspirin; Z90.710 Acquired absence of both cervix and uterus; Z95.1 Presence of aortocoronary bypass graft; Z95.5 Presence of coronary angioplasty implant and graft; Z88.8 Allergy status to other drugs, medicaments and biological substances
CPT/HCPCS: 36415; 71045; 80048; 80053; 80061; 83036; 83880; 84484; 85025; 85610; 85730; 87070; 93005; 99284; G0378

== ENCOUNTER 2019-06-27 15:14 | Emergency (ER) | payer MEDICARE, OTHER ==
[~2019-06-27] VITALS: Ht 152.4 cm; Wt 58.0 kg
[~2019-06-27 15:14] MED LIST changes: -ASPI-1071 PO; +ASPI-1265 PO; -ATEN-169 PO; +ATOR80TA PO; +CALC0.253 PO; +CARV6.253 PO; -CEPH500C5 PO; +CHOL10002 PO; +CLOP75TA35 PO; +FURO-150 PO; -FURO20TA4 PO; +GABA-530 PO; -HYDR-4070 PO; +HYDR100T27 PO; +LACT1CAP26 PO; +LEVO50TA8 PO; +LISI-642 PO; +MAGN64TA10 PO; -MORP30TA60 PO; +MULT-1141 PO; +NAPH1POW3 PO; -OXYB5TAB PO; +PANT-47 PO; -PANT40TA4 PO; +POTA10TA19 PO; +POTA20TA10 PO; -ROSU40TA21; -SYN0.075T PO; -TICA90TA PO
[2019-06-27] MEDS ORDERED: methylPREDNISolone sod succ 125mg/2ml vial IV ONE (15:50)
[2019-06-27] MEDS ORDERED: ipratropium/albuterol 3ml nebule NEB ONE (15:50)
[2019-06-27] MEDS ORDERED: normal saline 1000ML IV soln IVB ONE (15:50)
[2019-06-27 16:01] LABS: BASOPHILS # (AUTO) 0.1 X10'3 (0-0.2); EOSINOPHILS # (AUTO) 0.2 X10'3 (0-0.9); EOSINOPHILS % (AUTO) 2.6 % (0-6); HEMOGLOBIN 10.8 g/dl (12.0-16.0); LYMPHOCYTES # (AUTO) 1.3 X10'3 (1.1-4.8); LYMPHOCYTES % (AUTO) 14.4 % (21-51); MEAN CORPUSCULAR HEMOGLOBIN 31.4 PG (27.0-31.0); MEAN CORPUSCULAR HGB CONC 33.7 g/dL (33.0-36.5); MEAN CORPUSCULAR VOLUME 93.2 FL (78-98); MEAN PLATELET VOLUME 9.5 FL (7.4-10.4); MONOCYTES # (AUTO) 0.6 X10'3 (0-0.9); MONOCYTES % (AUTO) 6.6 % (2-12); NEUTROPHILS # (AUTO) 6.9 X10'3 (1.8-7.7); NEUTROPHILS % (AUTO) 75.4 % (42-75); PLATELET COUNT 178 X10'3 (140-440); RED BLOOD COUNT 3.44 X10'6 (4.20-5.60); RED CELL DISTRIBUTION WIDTH 13.2 % (11.5-14.5); WHITE BLOOD COUNT 9.2 X10'3 (4.5-11.0)
[2019-06-27 16:19] LABS: ALANINE AMINOTRANSFERASE 170 U/L (12-78); ALBUMIN 3.3 G/DL (3.4-5.0); ALBUMIN/GLOBULIN RATIO 0.8 (1.1-1.5); ALKALINE PHOSPHATASE 147 IU/L (46-116); ANION GAP 12 (8-16); ASPARTATE AMINO TRANSFERASE 223 U/L (10-37); BILIRUBIN,TOTAL 0.6 MG/DL (0.1-1.0); BLOOD UREA NITROGEN 65 MG/DL (7-18); BUN/CREATININE RATIO 28.1 (6.6-38.0); CALCIUM 8.4 MG/DL (8.5-10.1); CHLORIDE 111 MMOL/L (99-107); CREATININE 2.31 MG/DL (0.40-0.90); GLUCOSE 108 MG/DL (70-104); POTASSIUM 4.3 MMOL/L (3.5-5.1); SODIUM 143 MMOL/L (135-145); TOTAL CARBON DIOXIDE 20.1 MMOL/L (24-32); TOTAL PROTEIN 7.3 G/DL (6.4-8.2); eGFR 20 ML/MIN
[2019-06-27] MEDS ORDERED: acetaminophen 325mg tablet PO ONE (16:50)
[2019-06-27] MEDS ORDERED: ALBU6.7H9 INH (18:11)
[2019-06-27] MEDS ORDERED: BENZ-38 PO (18:11)
[2019-06-27 18:41] VITALS: BP 139/47
== END 2019-06-27 18:43 | disposition home or self-care (01) ==
LOC: ER 15:15
DX: J22 Unspecified acute lower respiratory infection (principal); E78.00 Pure hypercholesterolemia, unspecified; I25.2 Old myocardial infarction; K21.9 Gastro-esophageal reflux disease without esophagitis; G89.29 Other chronic pain; I25.10 Atherosclerotic heart disease of native coronary artery without angina pectoris; I12.9 Hypertensive chronic kidney disease with stage 1 through stage 4 chronic kidney disease, or unspecified chronic kidney disease; N18.3 Chronic kidney disease, stage 3 (moderate); Z95.5 Presence of coronary angioplasty implant and graft; Z90.49 Acquired absence of other specified parts of digestive tract; Z90.710 Acquired absence of both cervix and uterus; Z88.1 Allergy status to other antibiotic agents; Z79.82 Long term (current) use of aspirin; Z79.899 Other long term (current) drug therapy
CPT/HCPCS: 36415; 71045; 80053; 83605; 85025; 87040; 87502; 87503; 94640; 96374; 99284; J2930; J7030; 94760

== ENCOUNTER 2019-07-13 18:47 | Emergency (ER) | payer MEDICARE ==
[~2019-07-13] VITALS: Ht 152.4 cm; Wt 59.1 kg
[~2019-07-13 18:47] MED LIST changes: +ALBU6.7H9 INH; +BENZ-38 PO
[2019-07-13 20:33] LABS: BASOPHILS # (AUTO) 0.1 X10'3 (0-0.2); BASOPHILS % (AUTO) 1.1 % (0-1); EOSINOPHILS # (AUTO) 0.3 X10'3 (0-0.9); EOSINOPHILS % (AUTO) 3.3 % (0-6); HEMATOCRIT 27.4 % (35.0-45.0); HEMOGLOBIN 9.4 g/dl (12.0-16.0); LYMPHOCYTES # (AUTO) 1.8 X10'3 (1.1-4.8); LYMPHOCYTES % (AUTO) 17.3 % (21-51); MEAN CORPUSCULAR HGB CONC 34.5 g/dL (33.0-36.5); MEAN CORPUSCULAR VOLUME 92.8 FL (78-98); MEAN PLATELET VOLUME 9.5 FL (7.4-10.4); MONOCYTES # (AUTO) 0.6 X10'3 (0-0.9); MONOCYTES % (AUTO) 5.5 % (2-12); NEUTROPHILS # (AUTO) 7.7 X10'3 (1.8-7.7); NEUTROPHILS % (AUTO) 72.8 % (42-75); PLATELET COUNT 183 X10'3 (140-440); RED BLOOD COUNT 2.95 X10'6 (4.20-5.60); RED CELL DISTRIBUTION WIDTH 12.7 % (11.5-14.5); WHITE BLOOD COUNT 10.6 X10'3 (4.5-11.0)
[2019-07-13 20:40] LABS: CLARITY,URINE CLEAR (Clear); COLOR,URINE YELLOW (Yellow); GLUCOSE, URINE NEGATIVE (Neg); KETONES,URINE NEGATIVE (Neg); LEUKOCYTE ESTERASE ,URINE NEGATIVE (Neg); NITRITES, URINE NEGATIVE (Neg); OCCULT BLOOD,URINE NEGATIVE (Neg); PH,URINE 5.5 (4.8-8.0); PROTEIN,URINE NEGATIVE (Neg); UROBILINOGEN,URINE 0.2 E.U/dL (0.2-1.0)
[2019-07-13 20:46] LABS: UA COLLECTION TYPE STRAIGHT CATH
[2019-07-13 20:47] LABS: ALANINE AMINOTRANSFERASE 18 U/L (12-78); ALBUMIN 2.6 G/DL (3.4-5.0); ALBUMIN/GLOBULIN RATIO 0.7 (1.1-1.5); ALKALINE PHOSPHATASE 53 IU/L (46-116); ANION GAP 14 (8-16); ASPARTATE AMINO TRANSFERASE 15 U/L (10-37); BILIRUBIN,TOTAL 0.5 MG/DL (0.1-1.0); BLOOD UREA NITROGEN 87 MG/DL (7-18); CALCIUM 8.7 MG/DL (8.5-10.1); CHLORIDE 108 MMOL/L (99-107); CREATININE 2.72 MG/DL (0.40-0.90); GLUCOSE 169 MG/DL (70-104); LIPASE 320 U/L (73-393); POTASSIUM 4.1 MMOL/L (3.5-5.1); SODIUM 140 MMOL/L (135-145); TOTAL CARBON DIOXIDE 18.2 MMOL/L (24-32); TOTAL PROTEIN 6.4 G/DL (6.4-8.2); eGFR 16 ML/MIN
[2019-07-13] MEDS ORDERED: normal saline 1000ml 1,000 ML IV ONE (21:15)
[2019-07-14 00:03] VITALS: BP 136/53
== END 2019-07-14 00:04 | disposition home or self-care (01) ==
LOC: ER 18:48
DX: N18.9 Chronic kidney disease, unspecified (principal); N17.9 Acute kidney failure, unspecified; I12.9 Hypertensive chronic kidney disease with stage 1 through stage 4 chronic kidney disease, or unspecified chronic kidney disease; R07.89 Other chest pain; M25.512 Pain in left shoulder; I25.10 Atherosclerotic heart disease of native coronary artery without angina pectoris; E78.00 Pure hypercholesterolemia, unspecified; I25.2 Old myocardial infarction; K21.9 Gastro-esophageal reflux disease without esophagitis; G89.29 Other chronic pain; Z98.61 Coronary angioplasty status; Z90.49 Acquired absence of other specified parts of digestive tract; Z95.1 Presence of aortocoronary bypass graft; Z90.710 Acquired absence of both cervix and uterus; Z98.890 Other specified postprocedural states; Z88.1 Allergy status to other antibiotic agents; Z79.82 Long term (current) use of aspirin; Z79.2 Long term (current) use of antibiotics; Z79.899 Other long term (current) drug therapy
CPT/HCPCS: 36415; 80053; 81003; 83605; 83690; 84145; 85025; 99283; J7030